=== PATIENT | male | born 1935 | race Caucasian/White ===

== ENCOUNTER 2017-03-17 08:17 | Day surgery (SDC) | payer BC ==
[2017-03-11 14:58] VITALS: BMI 29.0
[2017-03-17] MEDS: CYCLOPENTOLATE 2% OPHTH SOLN 2 ML BOTTLE ONE ×3 (08:45→08:55)
[2017-03-17] MEDS: PHENYLEPHRINE 2.5% OPHTH SOLN 15 ML BOTTLE ONE ×3 (08:45→08:55)
[2017-03-17] MEDS: TROPICAMIDE 1% OPHTH SOLN 15 ML BOTTLE ONE ×3 (08:45→08:55)
[2017-03-17] MEDS: CIPROFLOXACIN 0.3% EYE DROPS 5 ML BOTTLE ONE ×3 (08:45→08:55)
[2017-03-17] MEDS ORDERED: MIDAZOLAM HCL 2 MG/2 ML SINGLE DOSE VIAL ONE (10:12)
[2017-03-17 10:43] VITALS: TEMP 98.7
[2017-03-17 11:05] VITALS: BP 125/77; PULSE 69
--- NOTE | 2017-03-17 12:46 | OP ---
DATE OF OPERATION: 03/17/2017 OPERATIVE PROCEDURE: Lens Phacoemulsification with Posterior Chamber Intraocular Lens Placement, Right Eye PREOPERATIVE DIAGNOSIS: Visually Significant Cataract of Right Eye POSTOPERATIVE DIAGNOSIS: Visually Significant Cataract of Right Eye SURGEON: Myron Rae M.D. ANESTHESIA: MAC ANESTHESIOLOGIST: PROCEDURE: The patient was brought to the operating room and placed under monitored anesthesia care by Anesthesia. A drop of Tetracaine was then placed over the right eye. The patient was then prepped and draped in the usual sterile manner. A speculum was then placed over the right eye. The eye was then well irrigated with copious amounts of BSS (balanced salt solution). The operating microscope was then moved into position. A paracentesis was performed using a 15 degree blade. At this point 0.5 mL of 1% preservative free-lidocaine was injected into the anterior chamber. Amvisc plus was then injected into the anterior chamber. A clear corneal incision was then formed using a 2.2 mm keratome. A capsulorrhexis was then performed in a continuous circular fashion beginning with a cystotome completed with an Utratas forceps. Hydrodissection was then performed using BSS on a cannula. The phaco probe was then introduced through the corneal wound and the cataract was removed using the phaco chop technique. Approximately 3 seconds of absolute phaco time was used. The remaining cortex was then removed using irrigation and aspiration with an I/A probe. The capsule was then filled with regular Amvisc and the capsule was noted to be intact. A previously selected foldable posterior chamber intraocular lens was then injected into the capsule through the corneal wound using a lens injector. It was then dialed into position using a Sinskey hook. The Amvisc was then removed using irrigation and aspiration. Miostat was then injected through the paracentesis to constrict the pupil. The paracentesis and corneal wound were then hydrated and noted to be water tight. A drop of Maxitrol was then placed over the eye. The speculum was removed and clear shield was taped over the eye. The patient tolerated the procedure well and there were no surgical complications. The patient was asked to follow up in my office the next day. MYRON RAE M.D. [id number]
== END 2017-03-17 11:25 | disposition home or self-care (01) ==
LOC: FASU 08:17
PROVIDERS: ATTEND Ophthalmology
PROC: 08RJ3JZ Replacement of Right Lens with Synthetic Substitute, Percutaneous Approach (ICD-10-PCS; principal; 2017-03-17 10:16)
DX: H26.8 Other specified cataract (principal)

== ENCOUNTER 2021-04-23 14:53 | Emergency (ER) | payer OTHER ==
[2021-04-23 15:06] VITALS: BP 119/71; PULSE 77; TEMP 97.5; BMI 28.1
== END 2021-04-23 16:40 | disposition home or self-care (01) ==
LOC: FER 14:53
DX: R35.0 Frequency of micturition (principal)
CPT/HCPCS: 81003; 81015; 87086; 99283-25

== ENCOUNTER 2021-12-13 12:54 | Emergency (ER) | payer OTHER ==
[2021-12-13 13:00] VITALS: BP 112/78; PULSE 80; TEMP 97.6; BMI 29.7
== END 2021-12-13 15:01 | disposition home or self-care (01) ==
LOC: FER 12:54
DX: S63.8X1A Sprain of other part of right wrist and hand, initial encounter (principal); S40.011A Contusion of right shoulder, initial encounter; W01.0XXA Fall on same level from slipping, tripping and stumbling without subsequent striking against object, initial encounter
CPT/HCPCS: 73030-TC-RT-FY; 73110-TC-RT-FY; 99284-25

== ENCOUNTER 2022-09-01 13:13 | Emergency (ER) | payer OTHER ==
[2022-09-01 13:43] VITALS: RESP 16; TEMP 98.6; BMI 29.0
[2022-09-01 14:20] LABS: HEMATOCRIT 40.9 % (35.4-49); HEMOGLOBIN 14.3 G/dL (11.7-16.9); MCH 32.7 pg (25.7-33.7); MCHC 34.9 g/dl (32.0-35.9); MEAN CELL VOLUME 93.7 fl (80-96); MEAN PLT VOLUME 8.4 fl (7.5-11.1); PLATELET COUNT 331.7 10^3/uL (134-434); RBC 4.37 10^6/uL (4.00-5.60); RDW 14.2 % (11.9-15.9); WHITE BLOOD COUNT 12.6 10^3/uL (4.0-10.8)
[2022-09-01 14:26] LABS: ALBUMIN 2.9 g/dl (3.4-5.0); BILIRUBIN,TOTAL 0.7 mg/dl (0.2-1); CALCIUM 9.1 mg/dl (8.5-10); CREATININE 1.1 mg/dl (0.55-1.3); TOT PROT 7.4 g/dl (6.4-8.2)
[2022-09-01 14:33] LABS: PLATELET ESTIMATE ADEQUATE
[2022-09-01 18:09] VITALS: BP 156/68; PULSE 64
== END 2022-09-01 18:14 | disposition home or self-care (01) ==
LOC: FER 13:13
DX: F03.C0 Unspecified dementia, severe, without behavioral disturbance, psychotic disturbance, mood disturbance, and anxiety (principal)
CPT/HCPCS: 0241U-QW; 36415; 70450-TC; 71045-TC-FY; 80053; 81003; 81015; 85027; 87086; 93005; 99285-25